=== PATIENT | female | born 1985 | race Caucasian/White ===

== ENCOUNTER 2016-09-21 19:38 | Emergency (ER) | payer OTHER ==
[~2016-09-21] VITALS: Ht 157.5 cm; Wt 58.0 kg
[2016-09-21 19:41] VITALS: BP 142/83; PULSE 71; RESP 14; TEMP 97.8; O2SAT 99
[2016-09-21 22:30] LABS: AUTOMATED NEUTROPHIL # 2.5 TH/MM3 (1.8-7.7); BASOPHIL # 0.1 TH/MM3 (0-0.2); BASOPHIL % 1.1 % (0.0-2.0); EOSINOPHIL % 0.9 % (0.0-4.0); HEMATOCRIT 35.4 % (35.0-46.0); HEMO FLAGS DIFF FINAL; LYMPH % 41.3 % (9.0-44.0); LYMPHOCYTE # 2.1 TH/MM3 (1.0-4.8); MEAN CORPUSCULAR HEMOGLOBIN 29.5 PG (27.0-34.0); MEAN CORPUSCULAR HGB CONC 32.8 % (32.0-36.0); MONO % 7.1 % (0.0-8.0); NEUT % 49.6 % (16.0-70.0); PLATELET COUNT 223 TH/MM3 (150-450); RED BLOOD COUNT 3.94 MIL/MM3 (4.00-5.30); RED CELL DISTRIBUTION WIDTH 13.4 % (11.6-17.2)
[2016-09-21 22:45] LABS: ANION GAP 10 MEQ/L (5-15); AST (GOT) 14 U/L (15-37); BLOOD UREA NITROGEN 15 MG/DL (7-18); CHLORIDE 104 MEQ/L (98-107); GLOMERULAR FILTRATION RATE 87 ML/MIN (>89); POTASSIUM 3.6 MEQ/L (3.5-5.1); SODIUM (NA) 140 MEQ/L (136-145)
[2016-09-21 22:46] LABS: BLOOD, URINE NEG (NEG); GLUCOSE,URINE NEG (NEG); KETONE, URINE NEG (NEG); NITRITE,URINE NEG (NEG); URINE COLOR LIGHT-YELLOW (YELLW/STRAW)
[2016-09-21 22:47] LABS: COMMENT (UR) CULT NOT INDICATED; CULTURE IF INDICATED CULT NOT INDICATED
[2016-09-21 22:49] LABS: ALKALINE PHOSPHATASE 56 U/L (45-117); ALT (GPT) 23 U/L (10-53); TOTAL BILIRUBIN ADULT 0.3 MG/DL (0.2-1.0)
[2016-09-21 22:52] LABS: AMPHETAMINE, URINE NEG (NEG); BARBITURATES, URINE NEG (NEG); COCAINE, URINE NEG (NEG)
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
--- NOTE | 2016-09-22 00:58 | PD ---
Data Data Last Documented VS Vital Signs Date Time Temp Pulse Resp B/P Pulse Ox O2 Delivery O2 Flow Rate FiO2 09/21/16 19:41 97.8 71 14 142/83 99 Room Air Orders Complete Blood Count With Diff (09/21/16 21:31) Comprehensive Metabolic Panel (09/21/16 21:31) Psych Screen (09/21/16 21:31) Urinalysis - C+S If Indicated (09/21/16 22:24) Drug Screen, Random Urine (09/21/16 22:24) Alcohol (Ethanol) (09/21/16 21:45) Labs Laboratory Tests Test 09/21/16 21:45 White Blood Count 5.0 TH/MM3 Red Blood Count 3.94 MIL/MM3 Hemoglobin 11.6 GM/DL Hematocrit 35.4 % Mean Corpuscular Volume 90.0 FL Mean Corpuscular Hemoglobin 29.5 PG Mean Corpuscular Hemoglobin 32.8 % Concent Red Cell Distribution Width 13.4 % Platelet Count 223 TH/MM3 Mean Platelet Volume 9.8 FL Neutrophils (%) (Auto) 49.6 % Lymphocytes (%) (Auto) 41.3 % Monocytes (%) (Auto) 7.1 % Eosinophils (%) (Auto) 0.9 % Basophils (%) (Auto) 1.1 % Neutrophils # (Auto) 2.5 TH/MM3 Lymphocytes # (Auto) 2.1 TH/MM3 Monocytes # (Auto) 0.4 TH/MM3 Eosinophils # (Auto) 0.0 TH/MM3 Basophils # (Auto) 0.1 TH/MM3 CBC Comment DIFF FINAL Differential Comment Urine Color LIGHT-YELLOW Urine Turbidity CLEAR Urine pH 5.0 Urine Specific [place] 1.005 Urine Protein NEG mg/dL Urine Glucose (UA) NEG mg/dL Urine Ketones NEG mg/dL Urine Occult Blood NEG Urine Nitrite NEG Urine Bilirubin NEG Urine Urobilinogen LESS THAN 2.0 MG/DL Urine Leukocyte Esterase NEG Urine WBC LESS THAN 1 /hpf Microscopic Urinalysis Comment CULT NOT INDICATED Sodium Level 140 MEQ/L Potassium Level 3.6 MEQ/L Chloride Level 104 MEQ/L Carbon Dioxide Level 26.0 MEQ/L Anion Gap 10 MEQ/L Blood Urea Nitrogen 15 MG/DL Creatinine 0.77 MG/DL Estimat Glomerular Filtration 87 ML/MIN Rate Random Glucose 82 MG/DL Calcium Level 9.1 MG/DL Total Bilirubin 0.3 MG/DL Aspartate Amino Transf 14 U/L (AST/SGOT) Alanine Aminotransferase 23 U/L (ALT/SGPT) Alkaline Phosphatase 56 U/L Total Protein 7.7 GM/DL Albumin 4.3 GM/DL Urine Opiates Screen NEG Urine Barbiturates Screen NEG Urine Amphetamines Screen NEG Urine Benzodiazepines Screen NEG Urine Cocaine Screen NEG Urine Cannabinoids Screen NEG Ethyl Alcohol Level 5 MG/DL MDM Supervised Visit with [facility]: No Narrative Course Cleared by Psych Diagnosis Primary Impression: Mood disorder Patient Instructions: General Instructions Additional Instruction: Follow up with PMD Med/Other Pt SpecificInfo: No Change to Meds Scripts No Active Prescriptions or Reported Meds Disposition: 01 DISCHARGE HOME Condition: Stable Rolo Horn MD Sep 22, 2016 00:58
== END 2016-09-22 01:24 | disposition home or self-care (01) ==
LOC: NEPA 19:38
DX: F39 Unspecified mood [affective] disorder (principal)
CPT/HCPCS: 80053; 80307; 80320; 81001; 85025; 99283

== ENCOUNTER 2017-10-20 19:38 | Emergency (ER) | payer SELFPAY ==
[~2017-10-20] VITALS: Ht 157.5 cm; Wt 60.0 kg
[2017-10-20 19:46] VITALS: BP 129/77; PULSE 76; RESP 16; TEMP 98.1; O2SAT 98
--- NOTE | 2017-10-20 20:43 | PD ---
HPI Chief Complaint: Psychiatric Symptoms Time Seen by Provider: 20:13 Travel History International Travel<30 days: No Contact w/Intl Traveler<30days: No Traveled to known affect area: No History of Present Illness HPI Patient is a 31-year-old female presenting voluntarily to the emergency department for psychiatric evaluation. Patient reports feeling very depressed an lonely. She states that she has crying spells for no reason. She states she feels trapped in her relationship, she does not work. She is living with her ex-, she states they are trying to work things out. She is from [place] and has no family in the area. Patient states she was here last year for the same complaint. She states that she has been seeing a counselor and try to utilize what she was taught today but it did not work. She denies any suicidal homicidal ideations. She denies any illicit drug use or alcohol use. She has no physical complaints at this time. She states that she has not been sleeping well either. [facility] Past Medical History Anxiety: Yes Depression: Yes Diminished Hearing: No Tetanus Vaccination: Unknown Influenza Vaccination: No ?: Not LMP: 09/19/2017 Past Surgical History Surgical History: No Previous Surgery Social History Alcohol Use: Yes ([facility]) Tobacco Use: No Substance Use: No Allergies-Medications (Allergen,Severity, Reaction): Coded Allergies: No Known Allergies (Unverified Adverse Reaction, Unknown, 10/20/17) Reported Meds & Prescriptions Reported Meds & Active Scripts Active No Active Prescriptions or Reported Medications Review of Systems Except as stated in HPI: all other systems reviewed are Neg Psychiatric: Positive: Anxiety, Depression, No: Suicidal Ideations, Substance Abuse, Homicidal Ideation Physical Exam Narrative GENERAL: Well-developed, well-nourished, well-appearing female. Presenting in no acute distress. SKIN: Warm and dry. HEAD: Atraumatic. Normocephalic. EYES: Pupils equal and round. No scleral icterus. No injection or drainage. ENT: No nasal bleeding or discharge. Mucous membranes pink and moist. NECK: Trachea midline. No JVD. CARDIOVASCULAR: Regular rate and rhythm. RESPIRATORY: No accessory muscle use. Clear to auscultation. Breath sounds equal bilaterally. GASTROINTESTINAL: Abdomen soft, non-tender, nondistended. Hepatic and splenic margins not palpable. MUSCULOSKELETAL: Extremities without clubbing, cyanosis, or edema. No obvious deformities. NEUROLOGICAL: Awake and alert. No obvious cranial nerve deficits. Motor grossly within normal limits. Five out of 5 muscle strength in the arms and legs. Normal speech. PSYCHIATRIC: Depressed mood and affect; insight and judgment normal. Data Data Last Documented VS Vital Signs Date Time Temp Pulse Resp B/P (MAP) Pulse Ox O2 Delivery O2 Flow Rate FiO2 10/20/17 19:46 98.1 76 16 129/77 (94) 98 Orders Orders Complete Blood Count With Diff (10/20/17 20:37) Comprehensive Metabolic Panel (10/20/17 20:37) Thyroid Stimulating Hormone (10/20/17 20:37) Urinalysis - C+S If Indicated (10/20/17 20:37) Ed Urine Pregnancytest Poc (10/20/17 20:37) Psych Screen (10/20/17 20:37) Drug Screen, Random Urine (10/20/17 20:37) Alcohol (Ethanol) (10/20/17 20:37) Salicylates (Aspirin) (10/20/17 20:37) Tylenol (Acetaminophen) (10/20/17 20:37) Labs Laboratory Tests Test 10/20/17 20:45 White Blood Count 7.4 TH/MM3 Red Blood Count 4.01 MIL/MM3 Hemoglobin 12.2 GM/DL Hematocrit 36.2 % Mean Corpuscular Volume 90.5 FL Mean Corpuscular Hemoglobin 30.5 PG Mean Corpuscular Hemoglobin Concent 33.7 % Red Cell Distribution Width 12.7 % Platelet Count 216 TH/MM3 Mean Platelet Volume 9.1 FL Neutrophils (%) (Auto) 66.6 % Lymphocytes (%) (Auto) 27.0 % Monocytes (%) (Auto) 5.7 % Eosinophils (%) (Auto) 0.3 % Basophils (%) (Auto) 0.4 % Neutrophils # (Auto) 4.9 TH/MM3 Lymphocytes # (Auto) 2.0 TH/MM3 Monocytes # (Auto) 0.4 TH/MM3 Eosinophils # (Auto) 0.0 TH/MM3 Basophils # (Auto) 0.0 TH/MM3 CBC Comment DIFF FINAL Differential Comment Blood Urea Nitrogen 10 MG/DL Creatinine 0.71 MG/DL Random Glucose 91 MG/DL Total Protein 7.5 GM/DL Albumin 4.1 GM/DL Calcium Level 9.0 MG/DL Alkaline Phosphatase 49 U/L Aspartate Amino Transf (AST/SGOT) 9 U/L Alanine Aminotransferase (ALT/SGPT) 18 U/L Total Bilirubin 0.3 MG/DL Sodium Level 140 MEQ/L Potassium Level 3.5 MEQ/L Chloride Level 108 MEQ/L Carbon Dioxide Level 23.3 MEQ/L Anion Gap 9 MEQ/L Estimat Glomerular Filtration Rate 95 ML/MIN Thyroid Stimulating Hormone 3rd Gen 2.010 uIU/ML Salicylates Level LESS THAN 1.7 MG/DL Acetaminophen Level LESS THAN 2.0 MCG/ML Ethyl Alcohol Level LESS THAN 3 MG/DL MDM Medical Decision Making Medical Screen Exam Complete: Yes Emergency Medical Condition: Yes Medical Record Reviewed: Yes Interpretation(s) Laboratory Tests Test 10/20/17 20:45 White Blood Count 7.4 TH/MM3 Red Blood Count 4.01 MIL/MM3 Hemoglobin 12.2 GM/DL Hematocrit 36.2 % Mean Corpuscular Volume 90.5 FL Mean Corpuscular Hemoglobin 30.5 PG Mean Corpuscular Hemoglobin Concent 33.7 % Red Cell Distribution Width 12.7 % Platelet Count 216 TH/MM3 Mean Platelet Volume 9.1 FL Neutrophils (%) (Auto) 66.6 % Lymphocytes (%) (Auto) 27.0 % Monocytes (%) (Auto) 5.7 % Eosinophils (%) (Auto) 0.3 % Basophils (%) (Auto) 0.4 % Neutrophils # (Auto) 4.9 TH/MM3 Lymphocytes # (Auto) 2.0 TH/MM3 Monocytes # (Auto) 0.4 TH/MM3 Eosinophils # (Auto) 0.0 TH/MM3 Basophils # (Auto) 0.0 TH/MM3 CBC Comment DIFF FINAL Differential Comment Blood Urea Nitrogen 10 MG/DL Creatinine 0.71 MG/DL Random Glucose 91 MG/DL Total Protein 7.5 GM/DL Albumin 4.1 GM/DL Calcium Level 9.0 MG/DL Alkaline Phosphatase 49 U/L Aspartate Amino Transf (AST/SGOT) 9 U/L Alanine Aminotransferase (ALT/SGPT) 18 U/L Total Bilirubin 0.3 MG/DL Sodium Level 140 MEQ/L Potassium Level 3.5 MEQ/L Chloride Level 108 MEQ/L Carbon Dioxide Level 23.3 MEQ/L Anion Gap 9 MEQ/L Estimat Glomerular Filtration Rate 95 ML/MIN Thyroid Stimulating Hormone 3rd Gen 2.010 uIU/ML Salicylates Level LESS THAN 1.7 MG/DL Acetaminophen Level LESS THAN 2.0 MCG/ML Ethyl Alcohol Level LESS THAN 3 MG/DL Vital Signs Date Time Temp Pulse Resp B/P (MAP) Pulse Ox O2 Delivery O2 Flow Rate FiO2 10/20/17 19:46 98.1 76 16 129/77 (94) 98 Differential Diagnosis Depression versus mood disorder versus metabolic abnormality versus other Narrative Course Patient is a 31-year-old female that presented voluntarily to the emergency department for psychiatric evaluation of depression which has not improved with counseling. Patient's vital signs are stable, she is well-appearing, she denies any suicidal homicidal ideations now or any previous suicide attempt. Mental health screening discussed with the patient. Psychiatric screen ordered. Labs reviewed, no acute findings identified. Patient is medically cleared. She was seen and evaluated weighted by psychiatric nurse screener. She does not want to stay in the emergency department overnight to wait for the psychiatrist. Again patient has had no suicidal homicidal ideations. She was given a list of resources in the area. She made a plan to go to [facility] in the morning. Patient was encouraged to return to emergency department any new worsening symptoms. She verbalized understanding of these instructions. She is stable for discharge. Diagnosis Primary Impression: Depression (emotion) Qualified Codes: F32.9 - Major depressive disorder, single episode, unspecified Referrals: [facility] Patient Instructions: Depression (ED), General Instructions Additional Instructions: Present to [facility] in the morning as discussed Return to emergency department for any new worsening symptoms Med/Other Pt SpecificInfo: No Change to Meds Scripts No Active Prescriptions or Reported Meds Disposition: 01 DISCHARGE HOME Condition: Stable Dorcas Fregoso Oct 20, 2017 20:43
[2017-10-20 21:01] LABS: AUTOMATED NEUTROPHIL # 4.9 TH/MM3 (1.8-7.7); BASOPHIL % 0.4 % (0.0-2.0); EOSINOPHIL % 0.3 % (0.0-4.0); HEMATOCRIT 36.2 % (35.0-46.0); HEMOGLOBIN 12.2 GM/DL (11.6-15.3); MEAN CELL VOLUME 90.5 FL (80.0-100.0); MEAN CORPUSCULAR HEMOGLOBIN 30.5 PG (27.0-34.0); MEAN CORPUSCULAR HGB CONC 33.7 % (32.0-36.0); MEAN PLATELET VOLUME 9.1 FL (7.0-11.0); MONO % 5.7 % (0.0-8.0); MONOCYTE # 0.4 TH/MM3 (0-0.9); NEUT % 66.6 % (16.0-70.0); PLATELET COUNT 216 TH/MM3 (150-450); RED BLOOD COUNT 4.01 MIL/MM3 (4.00-5.30); RED CELL DISTRIBUTION WIDTH 12.7 % (11.6-17.2); WHITE BLOOD COUNT 7.4 TH/MM3 (4.0-11.0)
[2017-10-20 21:32] LABS: ALBUMIN 4.1 GM/DL (3.4-5.0); AST (GOT) 9 U/L (15-37); BICARBONATE 23.3 MEQ/L (21.0-32.0); BLOOD UREA NITROGEN 10 MG/DL (7-18); CHLORIDE 108 MEQ/L (98-107); CREATININE 0.71 MG/DL (0.50-1.00); GLOMERULAR FILTRATION RATE 95 ML/MIN (>89); GLUCOSE,RANDOM 91 MG/DL (74-106); SODIUM (NA) 140 MEQ/L (136-145)
[2017-10-20 21:33] LABS: ALT (GPT) 18 U/L (10-53)
[2017-10-20 21:43] LABS: ACETAMINOPHEN LESS THAN 2.0 MCG/ML (10.0-30.0); ALKALINE PHOSPHATASE 49 U/L (45-117); TOTAL BILIRUBIN ADULT 0.3 MG/DL (0.2-1.0); TOTAL PROTEIN 7.5 GM/DL (6.4-8.2)
== END 2017-10-21 01:42 | disposition home or self-care (01) ==
LOC: NEPD 19:38
DX: F32.9 Major depressive disorder, single episode, unspecified (principal); F41.9 Anxiety disorder, unspecified
CPT/HCPCS: 80053; 80307; 84443; 84703; 85025; 99283